=== PATIENT | female | born 1960 | race Caucasian/White ===

== ENCOUNTER 2019-02-16 14:47 | Emergency (ER) | payer OTHER ==
--- NOTE | 2019-02-16 14:56 | EDM.PDOC ---
ED HPI GENERAL MEDICAL PROBLEM - General Chief Complaint: Chest Pain Stated Complaint: CHEST PAIN Time Seen by Provider: 02/16/19 14:55 Source of Information: Reports: Patient History Limitations: Reports: No Limitations - History of Present Illness INITIAL COMMENTS - FREE TEXT/NARRATIVE: Patient is a 58-year-old female is complaining having chest discomfort which started approximately 20 minutes prior to arrival. Patient describes this as lower chest/epigastric discomfort which is mild in intensity but does radiate up to both her jaws. Patient does not feel diaphoretic nauseous or short of breath. Had this several times before and was under a lot of emotional stress at the onset today and this is occurred previously a week ago also with emotional stress. She denies any exertional symptoms. Onset: Today, Sudden Duration: Improving Location: Reports: Chest, Abdomen Quality: Reports: Ache, Dull, Same as Previous Episode Severity: Mild Improves with: Reports: Rest Worsens with: Reports: Other Associated Symptoms: Reports: No Other Symptoms Right chest pain Pain Score (Numeric/FACES): 0 - Related Data Allergies Allergy/AdvReac Type Severity Reaction Status Date / Time No Known Allergies Allergy Verified 12/18/15 10:14 Home Meds: Home Meds Desvenlafaxine Succinate [Pristiq ER] 1 tab PO QAM 12/15/15 [History] Esomeprazole Magnesium [Nexium 24Hr] 1 cap PO DAILY 12/15/15 [History] Fluocinonide 1 applic TOP BID 12/15/15 [History] Losartan/Hydrochlorothiazide [Losartan-HCTZ 50-12.5 MG] 1 tab PO DAILY 12/15/15 [History] oxyCODONE HCl/Acetaminophen [Percocet 7.5-325 mg Tablet] 1 tab PO Q4H PRN #30 tablet 12/19/15 [Rx] Past Medical History - Past Health History Medical/Surgical History: Denies Medical/Surgical History Other HEENT History: wears glasses, has dental caps Cardiovascular History: Reports: Hypertension Respiratory History: Reports: Sleep Apnea Other Respiratory History: hx of sleep apnea before gastric lap-band surgery Gastrointestinal History: Reports: GERD Other Gastrointestinal History: rectal incontinence Genitourinary History: Reports: Urinary Incontinence 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: Musculoskeletal History: Reports: Back Pain, Chronic Neurological History: Reports: Other (See Below) Other Neuro History: hx of motion sickness Psychiatric History: Reports: Anxiety, Depression Endocrine/Metabolic History: Reports: Obesity/BMI 30+ Hematologic History: Reports: None Immunologic History: Reports: None Oncologic (Cancer) History: Reports: None Dermatologic History: Reports: None - Past Surgical History GI Surgical History: Reports: Bariatric Procedure, Other (See Below) Endocrine Surgical History: Reports: Other (See Below) ED ROS GENERAL - Review of Systems Review Of Systems: See Below Constitutional: Reports: No Symptoms HEENT: Reports: No Symptoms Respiratory: Reports: No Symptoms Cardiovascular: Reports: Chest Pain. Denies: Dyspnea on Exertion, Palpitations Endocrine: Reports: No Symptoms GI/Abdominal: Reports: No Symptoms : Reports: No Symptoms Musculoskeletal: Reports: No Symptoms Skin: Reports: No Symptoms Neurological: Reports: No Symptoms Psychiatric: Reports: No Symptoms ED EXAM, GENERAL - Physical Exam Exam: See Below Exam Limited By: No Limitations General Appearance: Alert, No Apparent Distress Head: Atraumatic Neck: Normal Inspection Respiratory/Chest: No Respiratory Distress Cardiovascular: Regular Rate, Rhythm, No JVD GI/Abdominal: Normal Bowel Sounds, Soft, Non-Tender Back Exam: Normal Inspection Extremities: Normal Inspection, No Pedal Edema Neurological: Alert, Oriented Psychiatric: Normal Affect Skin Exam: Warm, Dry Course - Vital Signs Last Recorded V/S: Last Vital Signs Temp 36.1 C 02/16/19 14:54 Pulse 86 02/16/19 18:29 Resp 16 02/16/19 17:00 BP 136/75 02/16/19 18:29 Pulse Ox 94 L 02/16/19 18:29 - Orders/Labs/Meds Orders: Active Orders 24 hr Category Date Time Status EKG 12 Lead [EKG Documentation Completion] [RC] STAT Care 02/16/19 15:15 Active Sodium Chloride 0.9% [Saline Flush] Med 02/16/19 15:06 Active 10 ml FLUSH ASDIRECTED PRN Sodium Chloride 0.9% [Saline Flush] Med 02/16/19 15:06 Active 2.5 ml FLUSH ASDIRECTED PRN Saline Lock Insert [OM.PC] Stat Oth 02/16/19 15:06 Ordered Medication Orders Sodium Chloride (Saline Flush) 10 ml FLUSH ASDIRECTED PRN PRN Reason: Keep Vein Open Last Admin: 02/16/19 15:28 Dose: 10 ml Sodium Chloride (Saline Flush) 2.5 ml FLUSH ASDIRECTED PRN PRN Reason: Keep Vein Open Last Admin: 02/16/19 15:28 Dose: 2.5 ml Labs: Laboratory Tests 02/16/19 02/16/19 02/16/19 Range/Units 15:00 15:06 18:10 WBC 7.24 (4.0-11.0) K/uL RBC 4.93 (4.30-5.90) M/uL Hgb 13.1 (12.0-16.0) g/dL Hct 40.3 (36.0-46.0) % MCV 81.7 (80.0-98.0) fL MCH 26.6 L (27.0-32.0) pg MCHC 32.5 (31.0-37.0) g/dL RDW Std Deviation 50.4 (28.0-62.0) fl RDW Coeff of Joseph 17 H (11.0-15.0) % Plt Count 232 (150-400) K/uL MPV 10.70 (7.40-12.00) fL Neut % (Auto) 67.8 (48.0-80.0) % Lymph % (Auto) 20.4 (16.0-40.0) % [place] % (Auto) 9.9 (0.0-15.0) % Eos % (Auto) 1.5 (0.0-7.0) % Baso % (Auto) 0.4 (0.0-1.5) % Neut # (Auto) 4.9 (1.4-5.7) K/uL Lymph # (Auto) 1.5 (0.6-2.4) K/uL Charlotte # (Auto) 0.7 (0.0-0.8) K/uL Eos # (Auto) 0.1 (0.0-0.7) K/uL Baso # (Auto) 0.0 (0.0-0.1) K/uL Nucleated RBC % 0.0 /100WBC Nucleated RBCs # 0 K/uL Sodium 139 (136-145) mmol/L Potassium 3.5 (3.5-5.1) mmol/L Chloride 101 (98-107) mmol/L Carbon Dioxide 30.3 (21.0-32.0) mmol/L BUN 10 (7.0-18.0) mg/dL Creatinine 0.9 (0.6-1.0) mg/dL Est Cr Clr Drug Dosing 64.56 mL/min Estimated GFR (MDRD) > 60.0 ml/min Glucose 82 (74-106) mg/dL Calcium 8.8 (8.5-10.1) mg/dL Total Bilirubin 0.4 (0.2-1.0) mg/dL AST 14 L (15-37) IU/L ALT 21 (14-63) IU/L Alkaline Phosphatase 88 (46-116) U/L Troponin I < 0.050 < 0.050 (0.000-0.056) ng/mL Total Protein 7.5 (6.4-8.2) g/dL Albumin 3.6 (3.4-5.0) g/dL Globulin 3.9 (2.6-4.0) g/dL Albumin/Globulin Ratio 0.9 (0.9-1.6) Lipase 166 (73-393) U/L Meds: Medications Generic Name Dose Route Start Last Admin Trade Name Freq PRN Reason Stop Dose Admin Sodium Chloride 10 ml 02/16/19 15:06 02/16/19 15:28 Saline Flush FLUSH 10 ml ASDIRECTED PRN Administration Keep Vein Open Sodium Chloride 2.5 ml 02/16/19 15:06 02/16/19 15:28 Saline Flush FLUSH 2.5 ml ASDIRECTED PRN Administration Keep Vein Open Discontinued Medications Generic Name Dose Route Start Last Admin Trade Name Freq PRN Reason Stop Dose Admin Aspirin 324 mg 02/16/19 15:06 02/16/19 15:27 Aspirin PO 02/16/19 15:07 324 mg ONETIME ONE Administration Al Hydroxide/Mg Hydroxide 15 0 ml 02/16/19 15:06 02/16/19 15:28 ml/ Metoclopramide HCl 5 mg/ PO 02/16/19 15:07 25 each Lidocaine HCl 5 ml ONETIME ONE Administration Famotidine 20 mg 02/16/19 15:06 02/16/19 15:28 Pepcid IVPUSH 02/16/19 15:07 20 mg ONETIME ONE Administration - Re-Assessments/Exams Free Text/Narrative Re-Assessment/Exam: 02/16/19 18:56 Patient repeat troponin also returned as negative. EKG shows no ST or T wave changes. Patient has not had any chest discomfort for several hours. She was no exertional component to her chest pain. I am comfortable discharging at this time and she will follow-up with her PCP for possible cardiac stress test in the near future. Departure - Departure Time of Disposition: 18:57 Disposition: Home, Self-Care 01 Condition: Good Clinical Impression: Atypical chest pain Referrals: Lisa Andrade, [employer]UI[employer] MACHINE OPERATOR [Primary Care Provider] - Forms: ED Department Discharge Additional Instructions: The following information is given to patients seen in the emergency department who are being discharged to home. This information is to outline your options for follow-up care. We provide all patients seen in our emergency department with a follow-up referral. The need for follow-up, as well as the timing and circumstances, are variable depending upon the specifics of your emergency department visit. If you don't have a primary care physician on staff, we will provide you with a referral. We always advise you to contact your personal physician following an emergency department visit to inform them of the circumstance of the visit and for follow-up with them and/or the need for any referrals to a consulting specialist. The emergency department will also refer you to a specialist when appropriate. This referral assures that you have the opportunity for follow-up care with a specialist. All of these measure are taken in an effort to provide you with optimal care, which includes your follow-up. Under all circumstances we always encourage you to contact your private physician who remains a resource for coordinating your care. When calling for follow-up care, please make the office aware that this follow-up is from your recent emergency room visit. If for any reason you are refused follow-up, please contact the [facility] Emergency Department at and asked to speak to the emergency department charge nurse. Sepsis Event Note - Focused Exam Vital Signs: Vital Signs Temp Pulse Resp BP Pulse Ox 02/16/19 18:29 86 136/75 94 L 02/16/19 17:00 92 16 120/60 100 02/16/19 16:00 84 16 129/73 94 L 02/16/19 14:54 36.1 C 91 16 144/78 H 99 Date Exam was Performed: 02/16/19 Time Exam was Performed: 18:50 - My Orders Last 24 Hours: My Active Orders 02/16/19 15:06 Sodium Chloride 0.9% [Saline Flush] 10 ml FLUSH ASDIRECTED PRN Sodium Chloride 0.9% [Saline Flush] 2.5 ml FLUSH ASDIRECTED PRN Saline Lock Insert [OM.PC] Stat 02/16/19 15:15 EKG 12 Lead [EKG Documentation Completion] [RC] STAT - Assessment/Plan Last 24 Hours: My Active Orders 02/16/19 15:06 Sodium Chloride 0.9% [Saline Flush] 10 ml FLUSH ASDIRECTED PRN Sodium Chloride 0.9% [Saline Flush] 2.5 ml FLUSH ASDIRECTED PRN Saline Lock Insert [OM.PC] Stat 02/16/19 15:15 EKG 12 Lead [EKG Documentation Completion] [RC] STAT
[2019-02-16] MEDS ORDERED: Sodium Chloride 0.9% 10 ML Syringe FLUSH PRN (15:06)
[2019-02-16] MEDS ORDERED: Sodium Chloride 0.9% 2.5 ML Syringe FLUSH PRN (15:06)
[2019-02-16] MEDS ORDERED: Alum Hydrox/Mag Hydrox/Simeth 15 ML, Metoclopramide 5 MG, Lidocaine 2% 5 ML PO ONE ×3 (15:06)
[2019-02-16] MEDS ORDERED: Aspirin 81 MG Tab.Chew PO ONE (15:06)
[2019-02-16] MEDS ORDERED: Famotidine 20 MG/2 ML SDV IVPUSH ONE (15:06)
[2019-02-16 15:34] LABS: BLOOD UREA NITROGEN,BUN 10 mg/dL (7.0-18.0); CARBON DIOXIDE,CO2 30.3 mmol/L (21.0-32.0); CHLORIDE,CL 101 mmol/L (98-107); GLUCOSE RANDOM 82 mg/dL (74-106); LIPASE 166 U/L (73-393); POTASSIUM,K 3.5 mmol/L (3.5-5.1); SODIUM,NA 139 mmol/L (136-145)
--- NOTE | 2019-02-16 16:30 | CR ---
INDICATION: Chest pain, shortness of breath TECHNIQUE: Frontal view of the chest. COMPARISON: None FINDINGS/IMPRESSION: The lungs are clear. There is no sizable pleural effusion or pneumothorax. The cardiomediastinal silhouette is normal. The visualized osseous structures are unremarkable. Dictated by Qamar Boyd MD @ Feb 16 2019 4:27PM Signed by Dr. Qamar Boyd @ Feb 16 2019 4:27PM
[2019-02-16 19:10] VITALS: BP 141/53; PULSE 77
== END 2019-02-16 19:10 | disposition home or self-care (01) ==
LOC: MW.ED 14:47
DX: R07.89 Other chest pain (principal); I10 Essential (primary) hypertension; K21.9 Gastro-esophageal reflux disease without esophagitis; F32.9 Major depressive disorder, single episode, unspecified; Z79.899 Other long term (current) drug therapy
CPT/HCPCS: 36415; 71045; 80053; 83690; 84484; 85025; 93005; 96374; 99285; A9270; S0028; 99283; J3490

== ENCOUNTER 2020-02-13 02:05 | Emergency (ER) | payer OTHER ==
[2020-02-13] MEDS ORDERED: Lidocaine 2% 5 ML SDV INJECT ONE (02:21)
[2020-02-13] MEDS ORDERED: Diphtheria,Pertussis(Acell),Tetanus Vaccine 0.5 ML Syringe IM ONE (02:21)
[2020-02-13] MEDS ORDERED: Lidocaine 2% with EPINEPHrine 1:200,000 20 ML SDV SUBCUT ONE (02:22)
--- NOTE | 2020-02-13 02:25 | EDM.PDOC ---
ED HPI GENERAL MEDICAL PROBLEM - General Stated Complaint: FALL Time Seen by Provider: 02/13/20 02:21 Source of Information: Reports: Patient History Limitations: Reports: No Limitations - History of Present Illness INITIAL COMMENTS - FREE TEXT/NARRATIVE: 59-year-old female Past medical history hypertension, overactive bladder, anxiety, depression presents for fall. Patient does endorse drinking alcohol throughout the day and appears clinically intoxicated. She states she was outside urinating when she slipped and fell landing face first on concrete. Denies LOC. Notes pain in her nose and bleeding from nose, lip, and chin. Denies neck pain. Denies N/V. No abdominal pain. Ambulatory after fall - Related Data Allergies Allergy/AdvReac Type Severity Reaction Status Date / Time No Known Allergies Allergy Verified 12/18/15 10:14 Home Meds: Home Meds Desvenlafaxine Succinate [Pristiq ER] 1 tab PO QAM 12/15/15 [History] Esomeprazole Magnesium [Nexium 24Hr] 1 cap PO DAILY 12/15/15 [History] Fluocinonide 1 applic TOP BID 12/15/15 [History] Losartan/Hydrochlorothiazide [Losartan-HCTZ 50-12.5 MG] 1 tab PO DAILY 12/15/15 [History] oxyCODONE HCl/Acetaminophen [Percocet 7.5-325 mg Tablet] 1 tab PO Q4H PRN #30 tablet 12/19/15 [Rx] Past Medical History - Past Health History Medical/Surgical History: Denies Medical/Surgical History Other HEENT History: wears glasses, has dental caps Cardiovascular History: Reports: Hypertension Respiratory History: Reports: Sleep Apnea Other Respiratory History: hx of sleep apnea before gastric lap-band surgery Gastrointestinal History: Reports: GERD Other Gastrointestinal History: rectal incontinence Genitourinary History: Reports: Urinary Incontinence 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: Musculoskeletal History: Reports: Back Pain, Chronic Neurological History: Reports: Other (See Below) Other Neuro History: hx of motion sickness Psychiatric History: Reports: Anxiety, Depression Endocrine/Metabolic History: Reports: Obesity/BMI 30+ Hematologic History: Reports: None Immunologic History: Reports: None Oncologic (Cancer) History: Reports: None Dermatologic History: Reports: None - Past Surgical History GI Surgical History: Reports: Bariatric Procedure, Other (See Below) Endocrine Surgical History: Reports: Other (See Below) Social & Family History - Family History Family Medical History: No Pertinent Family History ED ROS GENERAL - Review of Systems Review Of Systems: Comprehensive ROS is negative, except as noted in HPI. ED EXAM, GENERAL - Physical Exam Exam: See Below Exam Limited By: No Limitations General Appearance: Alert, WD/WN, No Apparent Distress, Anxious Eye Exam: Bilateral Eye: EOMI, PERRL Ears: Normal External Exam Nose: Other (0.5-cm laceration overlying bridge of nose, TTP, no septal hematoma) Throat/Mouth: Normal Inspection, Normal Lips, Normal Teeth, Normal Gums, Normal Oropharynx, Normal Voice, No Airway Compromise Head: Normocephalic, Other (1-cm laceration to chin, 1-cm laceration to bottom of lip not involving sabrina border, 1-cm stellate laceration to upper lip not involving sabrina border) Neck: Normal Inspection, Non-Tender Respiratory/Chest: No Respiratory Distress, Lungs Clear, Normal Breath Sounds, No Accessory Muscle Use Cardiovascular: Normal Peripheral Pulses, Regular Rate, Rhythm GI/Abdominal: Soft, Non-Tender Extremities: Normal Inspection, Non-Tender Neurological: Alert Psychiatric: Normal Affect, Normal Mood, Anxious Skin Exam: Warm, Dry, Intact, Normal Color ED GENERAL MEDICAL PROCEDURES - Laceration/Wound Repair Middle Nose Lac/wound length in cm: 0.5 Appearance: Superficial Distal NVT: Neuro & Vascular Intact Anesthetic Type: Local Local Anesthesia - Lidocaine (Xylocaine): 1% with EPI Local Anesthetic Volume: 1cc Skin Prep: Chlorhexidine (Hibiciens) Saline irrigation (cc's): 50 Closed with: Sutures Suture Size: 6-0 # of Sutures: 1 Suture Type: Nylon Tetanus Status Addressed: Yes Upper Medial Mouth Lac/wound length in cm: 1 Appearance: Superficial Distal NVT: Neuro & Vascular Intact Anesthetic Type: Digital Local Anesthesia - Lidocaine (Xylocaine): 1% Plain Local Anesthetic Volume: 3cc Skin Prep: Chlorhexidine (Hibiciens) Saline irrigation (cc's): 50 Suture Size: 6-0 # of Sutures: 5 Suture Type: Nylon Tetanus Status Addressed: Yes Complications: No Middle Mouth Lac/wound length in cm: 1 Appearance: Superficial Distal NVT: Neuro & Vascular Intact Anesthetic Type: Local Local Anesthesia - Lidocaine (Xylocaine): 2% Plain Local Anesthetic Volume: 4cc Skin Prep: Chlorhexidine (Hibiciens) Saline irrigation (cc's): 50 Closed with: Sutures Suture Size: 6-0 # of Sutures: 4 Suture Type: Nylon Tetanus Status Addressed: Yes Complications: No Middle Other Lac/wound length in cm: 1 (chin) Appearance: Superficial Distal NVT: Neuro & Vascular Intact Anesthetic Type: Local Local Anesthesia - Lidocaine (Xylocaine): 2% with EPI Local Anesthetic Volume: 4cc Skin Prep: Chlorhexidine (Hibiciens) Saline irrigation (cc's): 50 Closed with: Sutures Suture Size: 5-0 # of Sutures: 2 Suture Type: Nylon Tetanus Status Addressed: Yes Complications: No Course - Orders/Labs/Meds Orders: Active Orders 24 hr Category Date Time Status Vaccines to be Administered [RC] PER UNIT ROUTINE Care 02/13/20 02:22 Active Meds: Medications Discontinued Medications Generic Name Dose Route Start Last Admin Trade Name Freq PRN Reason Stop Dose Admin Diphtheria/Tetanus/Acell Pertussis 0.5 ml 02/13/20 02:21 02/13/20 03:02 Boostrix IM 02/13/20 02:22 0.5 ml .ONCE ONE Administration Lidocaine 5 ml 02/13/20 02:21 02/13/20 03:04 Xylocaine-Mpf 2% INJECT 02/13/20 02:22 Not Given ONETIME ONE Lidocaine HCl Confirm 02/13/20 02:31 02/13/20 03:03 Xylocaine 1% Administered 02/13/20 02:32 50 ml Dose Administration 50 ml .ROUTE .STK-MED ONE Lidocaine HCl 50 ml 02/13/20 02:33 02/13/20 03:03 Xylocaine 1% INJECT 02/13/20 02:34 Not Given ONETIME ONE Lidocaine/Epinephrine 10 ml 02/13/20 02:22 02/13/20 03:04 Xylocaine-Mpf 2%-Epi 1:200,000 SUBCUT 02/13/20 02:23 Not Given ONETIME ONE Lidocaine/Epinephrine Confirm 02/13/20 02:30 02/13/20 03:03 Xylocaine 1% With Epinephrine 1:100,000 Administered 02/13/20 02:31 Not Given Dose 20 ml .ROUTE .STK-MED ONE Lidocaine/Epinephrine 20 ml 02/13/20 02:32 02/13/20 03:04 Xylocaine 1% With Epinephrine 1:100,000 INJECT 02/13/20 02:33 Not Given ONETIME ONE - Re-Assessments/Exams Free Text/Narrative Re-Assessment/Exam: 02/13/20 02:24 We will give Tdap booster. Will get CT imaging of head, neck, max face. Well repair lacerations (see procedure note). 02/13/20 03:[address] head and C-spine unremarkable. CT max-face shows mildly displaced nasal bone fracture. Will d/c with ENT f/u Departure - Departure Time of Disposition: 03:20 Disposition: Home, Self-Care 01 Condition: Good Clinical Impression: Laceration CHI (closed head injury) Qualifiers: Encounter type: initial encounter Qualified Code(s): S09.90XA - Unspecified injury of head, initial encounter - Discharge Information Instructions: Head Injury, Adult, [id number], Sutured Wound Care, [id number] Referrals: Lisa Andrade, WOOD DIE MAKER [Primary Care Provider] - Additional Instructions: The following information is given to patients seen in the emergency department who are being discharged to home. This information is to outline your options for follow-up care. We provide all patients seen in our emergency department with a follow-up referral. The need for follow-up, as well as the timing and circumstances, are variable depending upon the specifics of your emergency department visit. If you don't have a primary care physician on staff, we will provide you with a referral. We always advise you to contact your personal physician following an emergency department visit to inform them of the circumstance of the visit and for follow-up with them and/or the need for any referrals to a consulting specialist. The emergency department will also refer you to a specialist when appropriate. This referral assures that you have the opportunity for follow-up care with a specialist. All of these measure are taken in an effort to provide you with optimal care, which includes your follow-up. Under all circumstances we always encourage you to contact your private physician who remains a resource for coordinating your care. When calling for follow-up care, please make the office aware that this follow-up is from your recent emergency room visit. If for any reason you are refused follow-up, please contact the [facility] Emergency Department at and asked to speak to the emergency department charge nurse. Please follow up with your primary care physician. If you do not have a primary care physician, see below: [facility] [address] [place] [address] [facility] [address] [place] [address] head and neck imaging were normal. The CT of your face does show a mildly displaced nasal bone fracture. If you are interested in getting this repaired for cosmetic purposes you can follow-up with an ENT doctor or a plastic surgeon. You should go to your primary care physician, an urgent care center, or back to the emergency department in 7 days to have your stitches removed. [facility], [address], [place] [id number] Dr. Freddie Donaldson [facility] [address] [place] [address] - My Orders Last 24 Hours: My Active Orders 02/13/20 02:22 Vaccines to be Administered [RC] PER UNIT ROUTINE - Assessment/Plan Last 24 Hours: My Active Orders 02/13/20 02:22 Vaccines to be Administered [RC] PER UNIT ROUTINE
[2020-02-13] MEDS ORDERED: Lidocaine 1% with EPINEPHrine 1:100,000 20 ML MDV ONE (02:30)
[2020-02-13] MEDS ORDERED: Lidocaine 1% 50 ML MDV ONE (02:31)
[2020-02-13] MEDS ORDERED: Lidocaine 1% with EPINEPHrine 1:100,000 20 ML MDV INJECT ONE (02:32)
[2020-02-13] MEDS ORDERED: Lidocaine 1% 10 ML MDV INJECT ONE (02:33)
--- NOTE | 2020-02-13 02:56 | CT ---
Indication: Fall Technique: Nonenhanced axial CT imaging through the head. Sagittal and coronal reconstructions are provided. Comparison: None Findings: There is no intracranial hemorrhage, edema, or mass effect. There is normal attenuation of the brain parenchyma. The ventricles are normal in size. The basal cisterns are patent. The calvarium is intact. The visualized paranasal sinuses and mastoid air cells are aerated. Impression: No acute intracranial process. Please note that all CT scans at this facility use dose modulation, iterative reconstruction, and/or weight-based dosing when appropriate to reduce radiation dose to as low as reasonably achievable. Dictated by Qamar Boyd MD @ Feb 13 2020 2:50AM Signed by Dr. Qamar Boyd @ Feb 13 2020 2:54AM
--- NOTE | 2020-02-13 03:02 | CT ---
Indication: Fall Technique: Nonenhanced axial CT images through the face. Sagittal and coronal reconstructions are provided. Comparison: None Findings: There is an acute mildly displaced fracture of the left nasal bone. Acute nondisplaced right nasal bone fracture may also be present. There is edema of the nasal bridge. Small amount of fluid in the anterior nasal cavity likely represents blood products. No additional fractures are demonstrated. The orbital contents are normal. The paranasal sinuses and mastoid air cells are aerated. The visualized skullbase is intact. Impression: Acute mildly displaced fracture of the left nasal bone and likely nondisplaced fracture of the right nasal bone. Edema of the nasal bridge. No additional facial fracture. Please note that all CT scans at this facility use dose modulation, iterative reconstruction, and/or weight-based dosing when appropriate to reduce radiation dose to as low as reasonably achievable. Dictated by Qamar Boyd MD @ Feb 13 2020 2:55AM Signed by Dr. Qamar Boyd @ Feb 13 2020 3:01AM
--- NOTE | 2020-02-13 03:08 | CT ---
Indication: Fall Technique: Nonenhanced axial CT imaging through the cervical spine. Sagittal and coronal reconstructions are provided. Comparison: None Findings: The cervical vertebral bodies are normal in height. No fracture is demonstrated. There is normal spinal alignment. Cervical lordosis is diminished. The atlantoaxial and atlantooccipital relationships are made. There is no prevertebral edema. Degenerative disc disease is noted at C4-5 through C6-7. Spinal stenosis is suggested at C5-6. Bilateral neural foramina stenosis is present at all three levels. Impression: 1. No acute fracture or traumatic malalignment. 2. Degenerative changes, as above. Please note that all CT scans at this facility use dose modulation, iterative reconstruction, and/or weight-based dosing when appropriate to reduce radiation dose to as low as reasonably achievable. Dictated by Qamar Boyd MD @ Feb 13 2020 3:01AM Signed by Dr. Qamar Boyd @ Feb 13 2020 3:06AM
== END 2020-02-13 03:49 | disposition home or self-care (01) ==
LOC: MW.ED 02:05
DX: S01.21XA Laceration without foreign body of nose, initial encounter (principal); S01.511A Laceration without foreign body of lip, initial encounter; S01.81XA Laceration without foreign body of other part of head, initial encounter; S09.90XA Unspecified injury of head, initial encounter; I10 Essential (primary) hypertension; K21.9 Gastro-esophageal reflux disease without esophagitis; E66.9 Obesity, unspecified; F41.9 Anxiety disorder, unspecified; F32.9 Major depressive disorder, single episode, unspecified; Z79.899 Other long term (current) drug therapy; Z23 Encounter for immunization; W01.10XA Fall on same level from slipping, tripping and stumbling with subsequent striking against unspecified object, initial encounter
CPT/HCPCS: 12013; 70450; 70486; 72125; 90471; 99283; J2001

== ENCOUNTER 2024-06-11 13:40 | Emergency (ER) | payer BC, OTHER ==
[2024-06-11 14:06] VITALS: BP 177/53; PULSE 88
[2024-06-11] MEDS: Lidocaine 4% Patch TOP STA (14:10)
[2024-06-11] MEDS: Ketorolac 30 MG/ML SDV IM ONE (14:10)
[2024-06-11] MEDS: Orphenadrine 60 MG/2 ML Inj IM ONE (14:10)
== END 2024-06-11 16:40 | disposition home or self-care (01) ==
LOC: MW.ED 13:40
DX: S13.4XXA Sprain of ligaments of cervical spine, initial encounter (principal); M25.512 Pain in left shoulder; M25.522 Pain in left elbow; M54.9 Dorsalgia, unspecified; I10 Essential (primary) hypertension; K21.9 Gastro-esophageal reflux disease without esophagitis; E78.00 Pure hypercholesterolemia, unspecified; E66.9 Obesity, unspecified; Z75.8 Other problems related to medical facilities and other health care; Z79.82 Long term (current) use of aspirin; Z79.899 Other long term (current) drug therapy; V47.5XXA Car driver injured in collision with fixed or stationary object in traffic accident, initial encounter
CPT/HCPCS: 70450; 72125; 72131; 73030; 73080; 96372; 99284; A9270; J1885; J2360; 99283